=== PATIENT | female | born 1995 | race Two or more races ===

== ENCOUNTER 2025-02-13 15:24 | Emergency (ER) | payer MEDICAID, SELFPAY ==
[2025-02-13 15:34] VITALS: BP 114/73; PULSE 78; RESP 18; TEMP 36.8; O2SAT 98; BMI 20.3
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
[2025-02-13 19:44] LABS: HCG Qualitative,Urine Negative
== END 2025-02-13 21:16 | disposition home or self-care (01) ==
PROVIDERS: Emergency Provider Physician Assistant
DX: S20.219A Contusion of unspecified front wall of thorax, initial encounter (principal); S29.012A Strain of muscle and tendon of back wall of thorax, initial encounter; V43.52XA Car driver injured in collision with other type car in traffic accident, initial encounter; Y92.410 Unspecified street and highway as the place of occurrence of the external cause
CPT/HCPCS: 71250; 72128; 74176; 81025; 99283